=== PATIENT | male | born 1970 | race Caucasian/White ===

== ENCOUNTER 2020-10-13 05:27 | Day surgery (SDC) | payer OTHER ==
[2020-10-12 08:51] LABS: MICROSCOPIC AUTO
[~2020-10-13] VITALS: Ht 175.3 cm; Wt 75.4 kg
[~2020-10-13 05:27] MED LIST: AZEL137S4 NAS; CETI-158 PO; FEXO1TAB29 PO; SILD50TA PO; testosterone INJ
[2020-10-13] MEDS ORDERED: CHLORHEXIDINE 15 ML UDC ONE (06:09)
[2020-10-13] MEDS ORDERED: LACTATED RINGERS 1,000 ML IV SCH (06:30)
[2020-10-13] MEDS ORDERED: CHLORHEXIDINE 15 ML UDC PO ONE (06:30)
[2020-10-13 06:39] VITALS: BP 139/88
[2020-10-13] MEDS ORDERED: FENTANYL PF 100 MCG/2ML ONE (07:23)
[2020-10-13] MEDS ORDERED: PROPOFOL 100 ML ONE (07:23)
[2020-10-13] MEDS ORDERED: OMNIPAQUE 350 MG/ML, 50 ML BOTTLE ONE (07:51)
[2020-10-13] MEDS ORDERED: ONDANSETRON 2MG/ML, 2ML ONE (07:55)
[2020-10-13] MEDS ORDERED: DEXAMETHASONE 4 MG/ML, 1ML ONE (07:55)
[2020-10-13] MEDS ORDERED: NEOSTIGMINE 1 MG/ML, 10ML ONE (07:55)
[2020-10-13] MEDS ORDERED: CEFAZOLIN 1,000 MG ONE (07:55)
[2020-10-13] MEDS ORDERED: GLYCOPYRROLATE 0.2MG/1ML, 5ML ONE (07:55)
[2020-10-13] MEDS ORDERED: PROPOFOL 10 MG/ML, 20ML ONE (07:55)
[2020-10-13] MEDS ORDERED: ROCURONIUM 10MG/ML,5ML ONE (07:55)
[2020-10-13] MEDS ORDERED: SUCCINYLCHOLINE 20 MG/ML, 10ML ONE (07:55)
[2020-10-13] MEDS ORDERED: KETOROLAC 30 MG/1 ML IV PRN ×2 (08:00→08:30)
[2020-10-13] MEDS ORDERED: LABETALOL 5MG/ML, 20ML IV PRN (08:00)
[2020-10-13] MEDS ORDERED: ALBUTEROL SULFATE 2.5 MG/3 ML NPPB PRN (08:00)
[2020-10-13] MEDS ORDERED: HYDROmorphone 2 MG/ML, 1ML IVPush PRN (08:00)
[2020-10-13] MEDS ORDERED: OXYcodone 5 MG/5 ML ORAL.SOL UDC PO PRN (08:00)
[2020-10-13] MEDS ORDERED: hydrALAzine 20 MG/ML, 1ML IV PRN (08:00)
[2020-10-13] MEDS ORDERED: DIAZEPAM 5 MG/ML, 2ML IVPush PRN (08:00)
[2020-10-13] MEDS ORDERED: ACETAMINOPHEN 325 MG TABLET PO PRN (08:00)
[2020-10-13] MEDS ORDERED: MEPERIDINE/PF 25MG/0.5ML IVPush PRN (08:00)
[2020-10-13] MEDS ORDERED: FENTANYL PF 100 MCG/2ML IV PRN (08:00)
[2020-10-13] MEDS ORDERED: PROMETHAZINE 25 MG/ML, 1ML IV PRN (08:00)
[2020-10-13] MEDS ORDERED: HYDROcodone/APAP 5/325 TABLET PO PRN (08:30)
[2020-10-13] MEDS ORDERED: ONDANSETRON 2MG/ML, 2ML IV PRN (08:30)
[2020-10-13] MEDS ORDERED: KETOROLAC 30 MG/1 ML ONE (08:35)
[2020-10-13] MEDS ORDERED: ACETAMINOPHEN 325 MG TABLET ONE (09:46)
== END 2020-10-13 10:30 | disposition home or self-care (01) ==
LOC: OUT 05:27
PROVIDERS: ATTEND Urology
DX: N20.1 Calculus of ureter (principal); Z20.822 Contact with and (suspected) exposure to COVID-19; Z79.899 Other long term (current) drug therapy
CPT/HCPCS: 52356; 74420; 81001; 82360; 87086; 88300; C1758; C1769; C2617; J0690; J1100; J1885; J2405; J2704; J2710; J3010; J7120; Q9967; U0003; U0005; J0330